=== PATIENT | female | born 1975 | race Caucasian/White ===

== ENCOUNTER 2017-03-07 12:41 | Emergency (ER) | payer OTHER ==
[~2017-03-07] VITALS: Ht 152.4 cm; Wt 72.6 kg
[2017-03-07] MEDS: KETOROLAC TROMETHAMINE 60 MG INJ IM ONE (13:11)
[2017-03-07] MEDS: HYDROCODONE/APAP 5-325MG TABLET PO ONE (13:11)
[2017-03-07] MEDS ORDERED: HYDROCODONE/APAP 5-325MG TABLET ONE (13:19)
[2017-03-07] MEDS ORDERED: KETOROLAC TROMETHAMINE 60 MG INJ IM ONE (13:19)
--- NOTE | 2017-03-07 13:49 | NUR ---
Patient discharged to home in stable conditon. Written and verbal after care instructions given. Patient verbalizes understanding of instructions.pt walks in steady gait. pt says feels better a nd wants to go home. translation provided by davidson rn. pt not driving
[2017-03-07 13:50] VITALS: BP 109/81
== END 2017-03-07 13:51 | disposition home or self-care (01) ==
LOC: ER 12:41
DX: S39.012A Strain of muscle, fascia and tendon of lower back, initial encounter (principal); X58.XXXA Exposure to other specified factors, initial encounter; Y93.89 Activity, other specified; Y92.89 Other specified places as the place of occurrence of the external cause; Y99.8 Other external cause status
CPT/HCPCS: A4663; J1885